=== PATIENT | female | born 1995 | race Caucasian/White ===

== ENCOUNTER 2024-06-14 18:24 | Emergency (ER) | payer BC, OTHER ==
[2024-06-14 19:01] VITALS: TEMP 97.5
[2024-06-14 19:23] VITALS: RESP 18
--- NOTE | 2024-06-14 19:40 | ERPHSYRPT ---
- History of Present Illness Time Seen by Provider: 06/14/24 19:15 Source: patient, family Exam Limitations: no limitations Patient Subjective Stated Complaint: pt stepped in a hole in her front yard and injured her left lateral foot Triage Nursing Assessment: Pt brought to the ER by her , vitals wnl, rates pain as 5/10, pulses normal, skin n/w/d, bruising to lateral side of left foot, unable to place weight on left foot, denies any other injuries Physician History: This is a 28-year-old female patient brought to the emergency department by private vehicle accompanied by her spouse with a complaint of left foot and ankle pain. Patient went outside into the ER to call her daughter to come in for dinner. There was an uneven area in her yard and she twisted her left foot and ankle. She has since stopped popping sensation. She is having trouble weightbearing. Method of Injury: twisted Occurred: just prior to arrival Severity of Pain-Max: moderate Severity of Pain-Current: moderate Lower Extremities Pain: foot: left, ankle: left Modifying Factors: Improves With: movement Associated Symptoms: other (Hurts to bear weight and therefore she is avoiding weightbearing) Allergies/Adverse Reactions: levofloxacin [From Levaquin] Allergy (Severe, Verified 06/14/24 19:01) Hives Sulfa (Sulfonamide Antibiotics) [Sulfa(Sulfonamide Antibiotics)] Allergy (Verified 06/14/24 19:01) Home Medications: No Reportable Medications [No Reported Medications] 06/14/24 [History] Hx Tetanus, Diphtheria Vaccination/Date Given: Yes Hx Influenza Vaccination/Date Given: No Hx Pneumococcal Vaccination/Date Given: No Travel Risk - International Travel Have you traveled outside of the country in past 3 weeks: No - Emerging Infectious Disease Are you exhibiting symptoms associated with any current EIDs: No - Review of Systems Constitutional: No Symptoms Eyes: No Symptoms Ears, Nose, & Throat: No Symptoms Respiratory: No Symptoms Cardiac: No Symptoms Abdominal/Gastrointestinal: No Symptoms Genitourinary Symptoms: No Symptoms Musculoskeletal: Injury (Left foot and ankle) Skin: No Symptoms Neurological: No Symptoms Psychological: No Symptoms Endocrine: No Symptoms Hematologic/Lymphatic: No Symptoms Immunological/Allergic: No Symptoms All Other Systems: Reviewed and Negative - Past Medical History Pertinent Past Medical History: Yes Neurological History: No Pertinent History ENT History: No Pertinent History Cardiac History: No Pertinent History Respiratory History: No Pertinent History Endocrine Medical History: No Pertinent History Musculoskeletal History: No Pertinent History GI Medical History: No Pertinent History History: No Pertinent History Psycho-Social History: No Pertinent History Female Reproductive Disorders: No Pertinent History Other Medical History: FREQUENT UTI, back pain - Past Surgical History Past Surgical History: No Neuro Surgical History: No Pertinent History Cardiac: No Pertinent History Respiratory: No Pertinent History Gastrointestinal: No Pertinent History Genitourinary: No Pertinent History Musculoskeletal: No Pertinent History Female Surgical History: Section - Female History Hx Last Menstrual Period: 06/09/2024 Hx Now: No - Social History Smoking Status: Never smoker Exposure to second hand smoke: No Drug Use: none - Social Determinants of Health Will the patient participate in the screening: Yes Do you worry about a steady place to live?: No Do you have any problems with any of the following?: No known problems In the past 12 months,have you had to go without utilities?: No Transportation Issues: No Has anyone in your support network made you feel unsafe?: No Have you or anyone in your house had to go w/o enough food: No - Nursing Vital Signs Nursing Vital Signs: Initial Vital Signs Temperature 97.5 F 06/14/24 18:55 Pulse Rate 66 06/14/24 18:55 Blood Pressure 115/59 06/14/24 18:55 O2 Sat by Pulse Oximetry 99 06/14/24 18:55 Pain Scale Pain Intensity 6 - Physical Exam General Appearance: no apparent distress, alert, anxiety Eyes, Ears, Nose, Throat Exam: normal ENT inspection, moist mucous membranes Neck Exam: normal inspection, non-tender, supple, full range of motion Cardiovascular/Respiratory Exam: chest non-tender, no respiratory distress Gastrointestinal/Abdominal Exam: non-tender Back Exam: normal inspection, normal range of motion, No CVA tenderness, No vertebral tenderness Hips Exam: bilateral: non-tender, normal inspection, normal range of motion, no evidence of injury Legs Exam: bilateral leg: non-tender, normal inspection, normal range of motion, no evidence of injury Knees Exam: bilateral knee: non-tender, normal inspection, normal range of motion, no evidence of injury Ankle Exam: right ankle: non-tender, normal inspection, normal range of motion, no evidence of injury, left ankle: limited range of motion, soft tissue tenderness Foot Exam: right foot: non-tender, normal inspection, normal range of motion, no evidence of injury, left foot: limited range of motion, soft tissue tenderness Neuro/Tendon Exam: normal sensation, normal tendon functions, responds to pain, no evidence tendon injury Mental Status Exam: alert, oriented x 3, cooperative Skin Exam: normal color, warm, dry SpO2 Interpretation: normal SpO2: 99 O2 Delivery: Room Air - Course Nursing assessment & vital signs reviewed: Yes Ordered Tests: Active Orders 24 hr Category Date Time Status Jsas Bandage Application -[facility] STAT Care 06/14/24 19:54 Active Crutches STAT Care 06/14/24 19:40 Active ANKLE (3 VIEWS) Stat Exams 06/14/24 19:10 Taken FOOT (MINIMUM 3 VIEWS) Stat Exams 06/14/24 19:10 Taken Medication Summary Discontinued Medications Generic Name Dose Route Start Last Admin Trade Name Freq PRN Reason Stop Dose Admin Ibuprofen 600 mg 06/14/24 19:40 06/14/24 19:47 Ibuprofen 600 Mg Tablet PO 06/14/24 19:41 600 mg STAT ONE Administration Ibuprofen Confirm 06/14/24 19:45 Ibuprofen 600 Mg Tablet Administered 06/14/24 19:46 Dose 600 mg .ROUTE .STK-MED ONE Oxycodone/Acetaminophen 1 tab 06/14/24 19:40 06/14/24 19:47 Oxycodone Hcl/Apap 5 Mg/325 Mg Tablet PO 06/14/24 19:41 1 tab STAT STA Administration Oxycodone/Acetaminophen Confirm 06/14/24 19:45 Oxycodone Hcl/Apap 5 Mg/325 Mg Tablet Administered 06/14/24 19:46 Dose 1 tab .ROUTE .STK-MED ONE - Progress Progress: improved, pain not gone completely Progress Note: 06/14/24 19:58 My medical decision making and the assignment of low complexity of this patient's medical issue today is based on review of the patient's past medical history, review the patient's medication list, review the patient drug allergy list, history present illness and physical findings on examination this patient workup includes x-ray of the left foot and left ankle. Differential diagnosis includes but is not limited to left foot sprain, left foot dislocation, left foot fracture, left ankle sprain, left ankle dislocation, left ankle fracture I interpreted the preliminary report of the patient's left foot and ankle x- rays. They are aware this is a preliminary report only. My impression is: Left foot x-ray shows no acute fracture or dislocation. Left ankle x-ray shows no acute fracture or dislocation. Counseled pt/family regarding: diagnosis, need for follow-up, rad results Medical Desision Making - Independent Historian Additional History obtained from: Spouse - Diagnostic Testing Diagnostic test were ordered, analyzed, and reviewed by me: Yes Radiological Interpretation: Interpreted by me, Teleradiologist Report - Risk of complications Minimal Risk: Minimal risk of morbidity - Departure Departure Disposition: Home Clinical Impression: Left ankle sprain, Sprain of left foot Condition: Stable Critical Care Time: No Referrals: ANDREA CAMP NP [Primary Care Provider, [facility]] - Follow up/PCP as directed Additional Instructions: Ice pack or ice bath to left foot and ankle 3 times a day for the next 3 days. Add ibuprofen 600 mg orally with food 3 times a day for the next 5 days. Call your primary care provider tomorrow, 06/15/2024 to make arrangements for follow-up appointment for further evaluation management. Your other options are to make a follow-up appointment with Dr. Sun, our passenger booking clerk. You can call his office tomorrow, 06/15/2024 to make a follow-up appointment. An additional option includes walk-in evaluation at [facility] orthopedic clinic. This is a walk-in clinic and you do not need to have an appointment.
[2024-06-14] MEDS ORDERED: PERCOCET TABLET 5/325MG ONE ×2 (19:45→19:57)
[2024-06-14] MEDS ORDERED: MOTRIN 600 MG ONE (19:45)
[2024-06-14] MEDS: MOTRIN 600 MG PO ONE (19:47)
[2024-06-14] MEDS: PERCOCET TABLET 5/325MG PO STA ×2 (19:47→19:58)
[2024-06-14 20:41] VITALS: BP 105/75; PULSE 59; O2SAT 98
--- NOTE | 2024-06-15 08:44 | XRAY ---
Indication: Pain following tripping. 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 No acute bony, articular, or soft tissue abnormalities.
--- NOTE | 2024-06-15 08:46 | XRAY ---
Indication: Pain following tripping. 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 No acute bony, articular, or soft tissue abnormalities.
== END 2024-06-14 20:44 | disposition home or self-care (01) ==
LOC: ED 18:24
DX: S93.402A Sprain of unspecified ligament of left ankle, initial encounter (principal); S93.602A Unspecified sprain of left foot, initial encounter; W18.49XA Other slipping, tripping and stumbling without falling, initial encounter; Y92.007 Garden or yard of unspecified non-institutional (private) residence as the place of occurrence of the external cause
CPT/HCPCS: 73610; 73630; 99283; A9270-GY